=== PATIENT | male | born 1975 | race African-American/Black ===

== ENCOUNTER 2025-07-30 12:25 | Inpatient (IN) | payer OTHER ==
[2025-07-30 13:04] VITALS: BMI 32.9
[2025-07-30] MEDS ORDERED: MAGNESIUM HYDROX 2400MG/30ML ORAL SUSPENSION 30 ML CUP PO PRN (13:31)
[2025-07-30] MEDS ORDERED: NICOTINE POLACRILEX 2 MG GUM BUC PRN (13:31)
[2025-07-30] MEDS ORDERED: BISMUTH SUBSALICYLATE 524 MG/30 ML PO PRN (13:31)
[2025-07-30] MEDS ORDERED: POLYETHYLENE GLYCOL (HEALTHYLAX) 3350 17 GM PACKET PO PRN (13:31)
[2025-07-30] MEDS ORDERED: IBUPROFEN 600 MG TABLET (FP) PO PRN (13:31)
[2025-07-30] MEDS ORDERED: DICYCLOMINE HCL 10 MG CAPSULE PO PRN (13:31)
[2025-07-30] MEDS ORDERED: ACETAMINOPHEN 325 MG TABLET (FP) PO PRN (13:31)
[2025-07-30] MEDS ORDERED: ONDANSETRON *ODT* 4 MG TABLET SL PRN (13:31)
[2025-07-30] MEDS ORDERED: NALOXONE (NARCAN) HCL 4 MG/0.1 ML SPRAY NS PRN (13:31)
[2025-07-30] MEDS ORDERED: guaiFENesin 600 MG TABLET.ER (FP) PO PRN (13:31)
[2025-07-30] MEDS ORDERED: BENZOCAINE/MENTHOL (CHLORASEPTIC ) LOZENGE MM PRN (13:31)
[2025-07-30] MEDS ORDERED: hydrOXYzine PAMOATE 25 MG CAPSULE (FP) PO PRN (13:31)
[2025-07-30] MEDS ORDERED: LOPERAMIDE HCL 2 MG CAPSULE PO PRN (13:31)
[2025-07-30] MEDS ORDERED: MAG HYDROX/AL HYDROX/SIMETH 30 ML UNIT-DOSE CUP PO PRN (13:31)
[2025-07-30] MEDS ORDERED: IBUPROFEN 400 MG TABLET (FP) PO PRN (13:31)
[2025-07-30] MEDS ORDERED: BENZONATATE 200 MG CAPSULE PO PRN (13:31)
[2025-07-30] MEDS: THIAMINE 100 MG TABLET PO SCH (22:18)
[2025-07-30] MEDS: MELATONIN 5 MG TABLETS PO SCH (22:18)
[2025-07-31] MEDS: NICOTINE 14 MG/24 HOURS TOPICAL PATCH TD SCH (09:31)
[2025-07-31] MEDS: PRENATAL VITAMINS W/ FOLIC ACID TABLET (FP) PO SCH (09:32)
[2025-07-31 12:01] LABS: MCHC 32.1 g/dl (32.3-36.5); MEAN CELL VOLUME 88.4 fl (79.0-92.2); MEAN PLT VOLUME 12.0 fl (9.4-12.4); RDW 13.2 % (12.1-15.9)
[2025-07-31 12:15] LABS: GLUCOSE,RANDOM 115.0 mg/dL (74-106)
[2025-07-31 12:16] LABS: TOT PROT 8.2 g/dl (6.4-8.2)
[2025-07-31 12:17] LABS: CO2 25.0 mmol/L (21-32)
[2025-07-31 12:18] LABS: ALK PHOS 80.0 U/L (40-150)
[2025-07-31 12:21] LABS: CREATININE 0.92 mg/dL (0.55-1.3); SGOT/AST 83.0 U/L (5-34); SGPT/ALT 88.0 U/L (0-55)
[2025-07-31] MEDS: BACITRACIN 0.9 GM PACKET TP SCH (12:51)
[2025-07-31] MEDS: PATIENT'S OWN MEDICATION (NON-FORMULARY) (Glecaprevir/Pibrentasvir [Mavyret 100-40 Mg Tabl PO SCH (13:30)
[2025-07-31] MEDS: ESCITALOPRAM OXALATE 20 MG TABLET PO SCH (14:29)
[2025-07-31] MEDS: ESCITALOPRAM OXALATE 20 MG TABLET PO ONE (14:38)
[2025-07-31] MEDS: METHOCARBAMOL 500 MG TABLET PO PRN (22:16)
[2025-08-01 06:12] VITALS: RESP 18
[2025-08-01 08:45] VITALS: BP 102/60; PULSE 74; TEMP 97.5
[2025-08-01] MEDS: ESCITALOPRAM OXALATE 20 MG TABLET PO SCH (10:18)
[2025-08-01] MEDS: ASPIRIN COATED 81 MG TABLET.EC PO SCH (10:18)
== END 2025-08-01 12:35 | disposition home or self-care (01) | DRG 773 ==
LOC: SUATTDRO 12:25 → YASAS 12:25 → Y3N 14:57
PROVIDERS: ADMIT Family Medicine; ATTEND Allergy & Immunology
PROC: HZ2ZZZZ Detoxification Services for Substance Abuse Treatment (ICD-10-PCS; principal; 2025-07-30)
DX: F11.20 Opioid dependence, uncomplicated (principal); F10.20 Alcohol dependence, uncomplicated; F14.20 Cocaine dependence, uncomplicated; F17.210 Nicotine dependence, cigarettes, uncomplicated; F32.A Depression, unspecified; I10 Essential (primary) hypertension; E78.5 Hyperlipidemia, unspecified; B18.2 Chronic viral hepatitis C; R73.03 Prediabetes; Z59.00 Homelessness unspecified
CPT/HCPCS: 36415; 80053; 80307; 82962; 85027; 86780; 93005; 93010